=== PATIENT | female | born 1995 | race Asian ===

== ENCOUNTER 2020-10-03 21:25 | Emergency (ER) | payer SELFPAY ==
[~2020-10-03] VITALS: Ht 147.3 cm; Wt 52.3 kg
[2020-10-03 22:12] LABS: BASO # 0.1 (0.02-0.10); EOS # 0.4 (0.04-0.40); EOS % 4.3 % (1.0-5.0); HEMATOCRIT 39.4 % (37.0-47.0); HEMOGLOBIN 13.4 g/dL (12.5-16.0); LYMPH# 1.9 (1.50-4.00); MEAN CELL VOLUME 88 fl (78-100); MEAN CORPUSCULAR HEMOGLOBIN 30 pg (27-31); MEAN CORPUSCULAR HGB CONC 34 g/dL (33-37); MEAN PLATELET VOLUME 11.3 fl (7.4-10.4); MONO # 0.9 (0.20-0.80); NEU # 5.3 (1.40-6.50); PLATELET COUNT 235 K/mm3 (130-400); RED BLOOD COUNT 4.47 M/mm3 (4.10-5.30); RED CELL DISTRIBUTION WIDTH 11.8 % (11.5-14.5); WHITE BLOOD COUNT 8.6 K/mm3 (4.8-10.8)
[2020-10-03] MEDS ORDERED: CLEOCIN HCL150 M1 PO (23:02)
[2020-10-03] MEDS ORDERED: NORCO 325 MG-51 TA1 PO (23:02)
[2020-10-03] MEDS ORDERED: PREDNISONE20 M1 PO (23:02)
[2020-10-03 23:25] VITALS: BP 122/74
== END 2020-10-03 23:25 | disposition home or self-care (01) ==
LOC: ED 21:25
PROVIDERS: Family Medicine
DX: J36 Peritonsillar abscess (principal); B27.90 Infectious mononucleosis, unspecified without complication
CPT/HCPCS: J1885